=== PATIENT | female | born 1995 | race Caucasian/White ===

== ENCOUNTER 2017-03-01 08:58 | Outpatient (CLI) | payer OTHER ==
--- NOTE | 2017-03-01 12:39 | DIAGNOSTIC IMAGING REPORT ---
PROCEDURE: US ABDOMEN ULTRASOUND-COMPLETE INDICATION: FIRMNESS NEAR PANCREATIC HEAD TECHNIQUE: Daniel scale and color Doppler sonographic images of the abdomen were obtained without comparison. COMPARISON: CT abdomen pelvis 08/31/2016 FINDINGS: The liver is normal in size, contour, and echotexture. No mass or intrahepatic biliary dilatation. The gallbladder is normal without stones or sludge. The wall is normal thickness measuring 1.7 mm. No pericholecystic fluid or Fonseca sign. The extrahepatic common duct is normal measuring 1.8 mm. The visualized pancreas is normal without ductal dilatation or peripancreatic fluid collection. No suspicious shadowing or mass visible. The abdominal aorta is normal in its course and caliber. The retrohepatic inferior vena cava is patent. There is appropriate hepatopetal flow in the portal vein. The right kidney measures 9.5 cm in length. The left kidney measures 11.2 cm in length. 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 No hydronephrosis. Both kidneys demonstrate normal cortical thickness without hydronephrosis, cyst, solid mass, or shadowing calculus. Color Doppler imaging demonstrates normal blood flow in each kidney. The spleen is normal in size measuring 11.6 cm in length. There is no perihepatic or perisplenic ascites. IMPRESSION: 1. No suspicious peripancreatic mass. 2. 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
== END 2017-03-01 23:00 ==
LOC: US SRH 08:58
DX: K86.9 Disease of pancreas, unspecified (principal)